=== PATIENT | female | born 1965 | race Caucasian/White ===

== ENCOUNTER → 2023-09-12 16:27 | Outpatient (REF) | payer BC, OTHER, SELFPAY | LOC: HWWDC 16:27 | PROVIDERS: ATTENDING PHYSICIAN Physician Assistant | DX: Z12.31 Encounter for screening mammogram for malignant neoplasm of breast (principal) | CPT/HCPCS: 77063; 77067 ==

== ENCOUNTER 2023-10-21 22:27 | Emergency (ER) | payer BC, OTHER, SELFPAY ==
[2023-10-21 22:29] VITALS: BP 127/73
--- NOTE | 2023-10-21 23:08 | ED.SKININJ ---
HPI-Injury
General
Chief Complaint: Skin Surface Trauma
Source: patient
Exam Limitations: none
Time Seen by Provider: 10/21/23 22:49
Nursing documentation reviewed up to this point in time: agreed with
History of Present Illness-Injury
Is this injury a work related problem?: Yes
Is pt an associate of [facility]/[place]?: No
Initial Injury comments:
Fell into cooler at work. Denies hitting her head. Sustained small lac to right velasco. INjuryoccurred jsut CHIEF STEWARD/STEWARDESS.
Past History
Past History
ED Past Medical History: None
Review of Systems
Review of Systems
Allergies reviewed?: Yes
All Other Systems: ROS reviewed and negative except as documented in HPI and ROS
Constitutional: Reports no symptoms
Musculoskeletal: Reports no symptoms
Skin: Reports other (Laceration to right velasco)
Neurological: Reports no symptoms
Psychiatric: Reports no symptoms
Skin Exam
Laceration
Right velasco:
Orientation: C shaped
Type of Laceration: simple
Any active bleeding?: no active bleeding
Distal skin color and temperature: normal-warm & good color
Normal distal neurovascular exam: Yes
Range of motion: full
Phy Exam
General Physical Exam
General Presentation: well appearing and no apparent distress
General age: appears stated age
General Skin: warm and dry
General Habitus: normal
General Mental: alert
Musculoskeletal Exam
Musculoskeletal Exam: full ROM and neuro vasc intact
Skin Exam
Skin Exam: normal color, warm/dry and no rash
Psychiatric Exam
Psychiatric Exam: normal mood/affect
Course
Orders/Labs/Results
Orders:
Orders
10/21/23 23:04
Tetanus/Diphth/Acelpertussis [Adacel] 0.5 ml IM .ONCE ONE
Vital Signs
Initial and Last Documented VS:
Initial Vital Signs
Temp Pulse Resp BP Pulse Ox
97.9 F 56 20 127/73 100
10/21/23 22:29 10/21/23 22:29 10/21/23 22:29 10/21/23 22:29 10/21/23 22:29
Last Documented Vital Signs
Temp Pulse Resp BP Pulse Ox
97.9 F 56 20 127/73 100
10/21/23 22:29 10/21/23 22:29 10/21/23 22:29 10/21/23 22:29 10/21/23 22:29
Procedures
Laceration Closure
Right Velasco:
Status of Wound: clean
Description of Wound Edges: sharp
Preparation: cleaned with saline and cleaned with Betadine
Anesthesia: 1% Lidocaine
Revision/Debridement: routine- no revision
Wound exploration: explored to base- no FB
Type of Closure: single layer closure
Skin Closure Material: 4-0 prolene
*Critical Care Note
Total Time (30-74mins, 75-104mins- exclusive of procedures): Not Applicable
ED Attending Note
-
Portions of this chart may have been created with voice recognition software.� Occasional wrong word or��sound alike� substitutions may have occurred due to the inherent limitations of voice recognition software.
Discharge Plan
Departure
Patient Disposition: Home (Routine Discharge)
Date of Disposition: 10/21/23
Time of Disposition: 23:11
Patient with high blood pressure during this ER visit?: No
Condition: Good
Covid-19: Not Applicable
Discharge Problem:
Laceration of leg
Instructions: Laceration Repair With Stitches (DC)
Referrals:
Savannah Thomas PA-C [Family Provider] -
Stand Alone Forms: Return to Work
Activity Restrictions/Additional Instructions:
Sutures can be removed by your workman's comp provider in 7-10 days. Follow up with your workman's comp provider in 1-2 days for a wound check.
Interventions
Interventions:
*Risk Screen - Suicide Last Done: 10/21/23 22:29
*General Assessment Last Done: 10/21/23 22:29
*Neglect/Abuse Screening Last Done: 10/21/23 22:29
ED- Fall Risk Assessment Last Done: 10/21/23 22:29
*ED COVID-19 Vaccine History Last Done: 10/21/23 22:29
Discharge Date and Time
Print Language: ITALIAN
[2023-10-21] MEDS: ADACEL 0.5 ML IM (23:29)
== END 2023-10-21 23:33 | disposition home or self-care (01) ==
LOC: EMR 22:27
PROVIDERS: EMERGENCY PHYSICIAN Emergency Medicine; FAMILY PHYSICIAN Physician Assistant
DX: S81.811A Laceration without foreign body, right lower leg, initial encounter (principal); W19.XXXA Unspecified fall, initial encounter; Y99.0 Civilian activity done for income or pay; Z23 Encounter for immunization
CPT/HCPCS: 12001; 90471; 99282; 90715

== ENCOUNTER → 2023-12-04 13:02 | Outpatient (REF) | payer BC, OTHER, SELFPAY | LOC: HWEVLT 13:02 | PROVIDERS: ATTENDING PHYSICIAN Radiology Diagnostic Radiology | DX: I83.893 Varicose veins of bilateral lower extremities with other complications (principal) | CPT/HCPCS: 93970 ==